=== PATIENT | male | born 1995 | race Caucasian/White ===

== ENCOUNTER 2018-08-06 00:20 | Emergency (ER) | payer MEDICAID ==
[~2018-08-06] VITALS: Ht 172.7 cm; Wt 79.4 kg
[2018-08-06 00:25] VITALS: BP_SYST 128
[2018-08-06] MEDS ORDERED: PENICILLIN G BENZATHINE 1.2 MMU/2 ML SYR IM ONE ×3 (00:30→00:45)
[2018-08-06] MEDS ORDERED: methylPREDNISolone SOD SUCC/PF 62.5 MG/ML VIAL IM ONE (00:30)
[2018-08-06] MEDS ORDERED: LIDOCAINE VISCOUS 2%, 15 ML UDC MM ONE ×2 (00:30→02:00)
[2018-08-06 06:21] VITALS: BP_SYST 128
== END 2018-08-06 06:21 | disposition home or self-care (01) ==
LOC: EDBD 00:20 → SED 00:20
DX: J36 Peritonsillar abscess (principal); R03.0 Elevated blood-pressure reading, without diagnosis of hypertension
CPT/HCPCS: 36415; 42700; 70490; 86403; 87081; 96372; 99284; J0561; J2001; J2930